=== PATIENT | male | born 1960 | race Caucasian/White ===

== ENCOUNTER → 2020-04-15 | Outpatient (CLI) | payer BC, OTHER ==
--- NOTE | 2020-04-15 09:03 | KCIC ---
MRI Lumbar Spine without contrast History: Low back pain, pain into the left lower extremity for one month Technique: Multiplanar, multi sequential noncontrast MR imaging was performed of the lumbar spine. Comparison: None Findings: Lumbar vertebral body stature is maintained. There is negligible posterior subluxation L5 relative to S1 and negligible grade 1 anterior spondylolisthesis at L3-4. There is moderate to severe degenerative disc disease greater on the right at L4-5 with associated degenerative endplate change. There is moderate disc disease greater posteriorly at L5-S1, mild degenerative disc disease at L3-4 eccentric to the right. Conus terminates at L1-2. There is negligible superior lumbar dextroscoliosis. There is anterior annular tear L3-4 also posteriorly at L5-S1. There is some nonspecific edema of the posterior subcutaneous fat of the lower back. There is no significant focal marrow edema. L1-L2: This level was not included on the axial images. Neural foramina and spinal canal are adequate. L2-L3: This level was not included on the axial images. There is negligible disc osteophyte complex. Spinal canal and neural foramina are overall adequate. L3-L4: There is minimal disc osteophyte complex and bulge. There is mild buckling of the ligamentum flavum and qyjk-pw-dokbdfih facet hypertrophic change. There is minimal fluid in the facet articulations bilaterally. There is moderate lateral recess stenosis bilaterally, [id number]-[id number] narrowing of the central canal. There is moderate bilateral neural foramina compromise by disc osteophyte complex and facets, contact of the undersurfaces of the exiting L3 nerve roots greater on the left, also contact of the proximal extraforaminal left L3 nerve root by disc osteophyte complex. L4-L5: There is minimal disc osteophyte complex, likely shallow partially calcified protrusion. There is mild indentation upon the ventral thecal sac greater in the right lateral recess. There is [id number] narrowing of the far right lateral recess with contact of the descending right L5 nerve root. There is mild bilateral facet degenerative change greater on the right. There is mild narrowing of the left neural foramen. There is severe narrowing of the right neural foramen with impingement of the exiting right L4 nerve root, narrowing by disc osteophyte complex and facet. Disc osteophyte complex is also near the proximal extraforaminal right L4 nerve root. L5-S1: There is negligible disc osteophyte complex. There is no impingement of the descending S1 nerve roots. Spinal canal is adequate. There is bilateral facet hypertrophic change. There is moderate neural foramina compromise bilaterally somewhat greater on the left. Impression: 1. There is esus-so-flxwkyvw narrowing of the far right lateral recess at L4-5 with contact of the descending right L5 nerve root. There is moderate narrowing of the far lateral recesses bilaterally at L3-4, mild to moderate narrowing of the central canal. 2. There is severe narrowing of the right L4-5 neural foramen with impingement of the exiting right L4 nerve root, moderate neural foramina compromise bilaterally at L3-4 and L4-5. 3. There is degenerative disc disease greatest at L4-5, to lesser degree at L5-S1 and minimally at L3-4. 4. There is mild abnormal alignment as stated, multilevel facet degenerative change. Electronically signed by: Foreign Willett MD (04/15/2020 9:00 AM) [facility] CENTERJanel
== END ==
LOC: KCIC MRI 07:55
PROVIDERS: ATTEND Family Medicine
DX: M47.816 Spondylosis without myelopathy or radiculopathy, lumbar region (principal); M43.16 Spondylolisthesis, lumbar region; M51.36 Other intervertebral disc degeneration, lumbar region; M48.061 Spinal stenosis, lumbar region without neurogenic claudication; M25.78 Osteophyte, vertebrae
CPT/HCPCS: 72148

== ENCOUNTER → 2020-04-21 | Outpatient (CLI) | payer BC, OTHER ==
[~2020-04-21] MED LIST: CALC200T3 PO; IBUP-1060 PO; IOHEXOL 180 MG/ML 10 ML VIAL. ONE; NAPR-514 PO; methylPREDNISolone ACETATE 40 MG/ML VIAL. ONE; methylPREDNISolone ACETATE 80 MG/ML VIAL. ONE
--- NOTE | 2020-04-21 09:14 | PDOC1 ---
INITIAL PAIN CONSULT DATE OF SERVICE: DOS: DATE: 04/21/20 TIME: 09:07 CHIEF COMPLAINT: Chief Complaint: Low back and left lower extremity pain HISTORY OF PRESENT ILLNESS: 59-year-old male presents with history of pain low back left lower extremity for several months now worse over the past 1 month without any specific injury or accident that he is aware of pain radiating from the low back into the left lowe r extremity most in the lateral thigh anterior thigh medial thigh medial lower leg in the groin on the left side patient reports this is worse with walking standing changing positions stooping bending repetitive motions stepping up or stepping down, patient works as a esthetician makeup artist and this is become difficult for him to work he is been off work now for several weeks because of the pain. Patient is tried tramadol as well as ibuprofen also Aleve all with only very minimal decrease in pain. Patient has some chiropractic treatments as well as exercise on his own but is only very temporary decreasing the pain but it does decrease it by about 10 to 20% patient reports her pain waking her from sleep least 3 times a night is been sleeping in recliner to try to decrease the pain side effects bowel bladder control does affect his ability to walk significantly and is favoring his left lower extremity but not use any assistive devices. Patient cries pain is sharp stabbing throbbing with numbness radiating pain tingling on the anterior thigh medial thigh as well as into the top of the foot on the left side at the junction of the foot and the ankle with some numbness as well and some throbbing sensation in the foot as well. Patient reports no significant symptoms on the right side. Patient rates his disability rating 0- 10 10 being the worst is a 10 with family home responsibilities recreation soc ial activity sexual behavior occupation 9 with self-care and 8 with life support activities. Patient have MRI scan lumbar spine showing L3-4 with moderate bilateral neuroforaminal compromise by disc ossified complex contact of the undersurface of the exiting L3 nerve roots greater on the left with contact of the proximal extraforaminal left L3 nerve root by disc osteophyte complex L4-5 shows mild bilateral facet degenerative change mild narrowing the left foramen and contact of the exiting right L4 nerve root by disc ossified complex. Patient reports no overt motor loss but significant fatigability with exercise activity with the left lower extremity. PAST MEDICAL HISTORY: PMH: Hearing loss, COPD, gastroesophageal reflux, arthritis PREVIOUS SURGERIES: Past Surgical Hx: Umbilical herniorrhaphy CURRENT MEDICATIONS: Current Meds: Ibuprofen, naproxen, Tums ALLERGIES; Allergies: Coded Allergies: No Known Drug Allergies (Unverified , 04/21/20) FAMILY HISTORY: Family Hx: Cancers SOCIAL HISTORY: Social Hx: Patient does not drink alcohol does not use any illegal illicit or recreational drugs patient does smoke cigarettes about 1 pack or less for the past 45 years is lives with his spouse lives locally in [facility] and works as a professional esthetician makeup artist REVIEW OF SYSTEMS: ROS: Positive for those items mentioned in history of present illness, all systems are reviewed, otherwise negative, is complete full and well-documented on patient's chart PHYSICAL EXAM: VS: Blood pressure is 141/91 pulse 101 respirations 16 temperature is 90.0 F height is 6 foot 2 inches weight is 264 pounds PE: PHYSICAL EXAMINATION: GENERAL: The patient is awake, alert, oriented, appropriate, very pleasant demeanor HEENT: Shows normocephalic, atraumatic. Full melo and mustache extraocular movements are intact and symmetrical. Oral cavity: Mucous membranes moist and pink. Dentition is intact. NECK: Shows anterior throat supple without palpable lymphadenopathy noted. Swallow reflex symmetrical. CHEST: Shows normal on inspection. Breath sounds are clear bilaterally, distant but no rales rhonchi or wheezes auscultated. HEART: Shows S1, S2 clear. No murmurs auscultated. ABDOMEN: Soft, nontender, nondistended, obese. No palpable organomegaly is noted. No rebound or guarding demonstrated. BACK: Shows spine grossly in the midline. Normal-appearing cervical lordotic curvature. There is slightly increased thoracic kyphosis, some minor flattening of the lumbar lordotic curvature. Lumbar paraspinous muscles show symmetrical on inspection, on palpation shows some moderate tenderness diffusely throughout the upper, middle and lower distribution of the paraspinous muscles bilaterally and also into the lower thoracic paraspinous musculature, firm and tender, but without specific trigger points, without radiation of pain. The patient has good rotational motion of the lumbar spine, both laterally as well as extension and flexion without significant difficulty. No tenderness over the spinous processes, sacrum or sacroiliac regions. EXTREMITIES: Lower extremities show deep tendon reflexes 2+ in the patellar and tendo calcaneus tendons. Motor exam is 5 on a scale of 5 with right dorsiflexion, extension, quadriceps and hamstring flexion and 4/5 on the left. Peripheral pulses are 1+ posterior tibial. No peripheral edema is noted bilaterally. Lower extremities are warm and dry to touch, equal in color and appearance. Straight leg raise noted to be negative on the right, left side is positive at 35 degrees decreased with knee flexion. Gaenslen's and Rowdy's maneuvers are negative bilaterally as well. The patient is able to stand, has difficulty trying to stand with all his weight on his left foot is a significantly painful. Patient is walking with a significant antalgic gait favoring the left lower extremity but without any assistive devices. SKIN: Shows warm and dry, good turgor. No edema. No sores, rashes or bruising throughout. IMPRESSION: Impression: 59-year-old male with several month history low back left lower extremity pain in a radicular fashion MRI scan and CT scans as noted COPD Arthritis Cigarette smoking Plan: Options were discussed with the patient including conservative medical management physical therapies and interventional techniques. Patient would like to pursue interventional techniques, we discussed a lumbar epidural steroid injection using description as well as anatomical models to describe the procedure. Risks were discussed including but not limited to: Bleeding, infection, possibility of epidural hematoma and subsequent neurological compromise, dural puncture, headaches, spinal cord and/or nerve damage, side effects of steroid medication, and poor results regarding pain control. Patient understands wished to proceed. Patient will return to the clinic in approximate 2 weeks for follow-up was counseled as to return appointment activity level and side effects to be aware of. Procedure is lumbar epidural steroid injection under local anesthetic using sterile prep and drape at the L3-4 level using C-arm fluoroscopic guidance in both AP and lateral views medications injected is 120 mg Depo-Medrol + 10 mL preservative-free normal saline and 2 mL contrast- condition at discharge is stable patient tolerated procedure well had no complications. LOKESH TALBERT MD Apr 21, 2020 09:14
== END ==
LOC: PNCL 08:00
PROVIDERS: ATTEND Anesthesiology
DX: M54.5 Low back pain (principal); M79.605 Pain in left leg; J44.9 Chronic obstructive pulmonary disease, unspecified; K21.9 Gastro-esophageal reflux disease without esophagitis; M19.90 Unspecified osteoarthritis, unspecified site; F17.210 Nicotine dependence, cigarettes, uncomplicated; Z79.899 Other long term (current) drug therapy
CPT/HCPCS: 62323; J1030; J1040; Q9965

== ENCOUNTER → 2020-05-08 | Outpatient (CLI) | payer BC, OTHER ==
--- NOTE | 2020-05-08 09:14 | PDOC ---
Progress Note - Pain Clinic Date of Service: DOS: DATE: 05/08/20 TIME: 09:12 Diagnosis: Dx: Lumbar radiculopathy with lumbar degenerative disc disease and lumbar spinal stenosis History or Present Illness: HPI: 59-year-old male returns follow-up status post lumbar epidural to injection x1. Patient reports about 50% improvement after a few days following the injection but the pain is definitely significantly improved in the low back and left lower extremity. Patient reports the tingling and stinging is much less intense in the left leg anterior thigh especially. Patient with pain in the low back rating the posterior hip lateral thigh anterior thigh anterior medial thigh medial groin into the medial knee on the left side. Patient reports is better with walking standing changing positions able to go back to work he was not doing any heavy lifting jobs has been on his feet most of his working days with good tolerance and good pain control. Patient reports the pain is sharp and aching and some tingling still in the left thigh patient reports is a 10 on scale 10 is worst over the past week 7 on average for its least is a 7 today. Patient reports no new motor or sensory deficits no new bowel or bladder incontinence or other complaints. Physical Exam: VS: Pressure is 144/91 pulse 83 respirations 18 temperature 98.0 F height is 6 foot 2 inches weight is 266 pounds PE: PHYSICAL EXAMINATION: GENERAL: The patient is awake, alert, oriented, appropriate, very pleasant demeanor HEENT: Shows normocephalic, atraumatic. Extraocular movements are intact and symmetrical. Oral cavity: Mucous membranes moist and pink. NECK: Shows anterior throat supple without palpable lymphadenopathy noted. Swallow reflex symmetrical. CHEST: Shows normal on inspection. Breath sounds are clear bilaterally. HEART: Shows S1, S2 clear. No murmurs auscultated. ABDOMEN: Soft, nontender, nondistended. No palpable organomegaly is noted. No rebound or guarding demonstrated. BACK: Shows spine grossly in the midline. Normal-appearing cervical lordotic curvature. There is slightly increased thoracic kyphosis, some minor flattening of the lumbar lordotic curvature. Lumbar paraspinous muscles show symmetrical on inspection, on palpation shows some moderate tenderness diffusely throughout the upper, middle and lower distribution of the paraspinous muscles without specific trigger points, without radiation of pain. The patient has good rotational motion of the lumbar spine, both laterally as well as extension and flexion without significant difficulty. No tenderness over the spinous processes, sacrum or sacroiliac regions. EXTREMITIES: Lower extremities show deep tendon reflexes 2+ in the patellar and tendo calcaneus tendons. Motor exam is 5 on a scale of 5 with right dorsiflexion, extension, quadriceps and hamstring flexion and 4/5 on the left. Peripheral pulses are 1+ posterior tibial. No peripheral edema is noted bilaterally. Lower extremities are warm and dry to touch, equal in color and appearance. SKIN: Shows warm and dry, good turgor. No edema. No sores, rashes or bruising throughout. Procedure: Procedure: Options were discussed with the patient. Patient's old chart was reviewed his current medication regimen updated current review of systems updated today as well. We will proceed with a second in the series lumbar epidural steroid injection today with fluoroscopic guidance. Risks were discussed including but not limited to: Bleeding, infection, possibility of epidural hematoma and subsequent neurological compromise, dural puncture, headaches, spinal cord and/or nerve damage, side effects of steroid medication, and poor results regarding pain control. Patient understands wished to proceed. Patient will return to clinic in possibly 2 weeks for follow-up was counseled as to return appointment activity level and side effects to be aware of. Medication Injected: Med Injected: Procedure is lumbar epidural steroid injection under local anesthetic using sterile prep and drape at the L3-4 level using C-arm fluoroscopic guidance in both AP and lateral views medications injected is 120 mg Depo-Medrol + 10 mL preservative-free normal saline and 2 mL contrast- condition at discharge is stable patient tolerated procedure well had no complications. Condition at Discharge: Condition at Discharge: Condition at discharge is stable, patient tolerated procedure well and had no complications. LOKESH TALBERT MD May 08, 2020 09:14
== END | disposition home or self-care (01) ==
LOC: PNCL 08:07
PROVIDERS: ATTEND Anesthesiology
DX: M51.16 Intervertebral disc disorders with radiculopathy, lumbar region (principal); M48.061 Spinal stenosis, lumbar region without neurogenic claudication; Z79.899 Other long term (current) drug therapy
CPT/HCPCS: 62323; J1030; J1040; Q9965

== ENCOUNTER → 2020-06-03 | Outpatient (CLI) | payer BC, OTHER ==
[~2020-06-03] MED LIST changes: +TRAM50TA PO
--- NOTE | 2020-06-03 09:36 | PDOC ---
Progress Note - Pain Clinic Date of Service: DOS: DATE: 06/03/20 TIME: 09:33 Diagnosis: Dx: Lumbar radiculopathy with lumbar degenerative disc disease and lumbar spinal stenosis History or Present Illness: HPI: 59-year-old male returns follow-up status post lumbar epidural straight injection x2. Patient ports that 70% improvement overall much more comfortable increase in activity during work activities household activities sleeping with greater ease and comfort does not awaken him sleep at this time. Patient reports pain in the low back left lower extremity lateral thigh anterior thigh medial thigh medial lower leg and knee patient was aching stabbing on and off in intensity patient ports his pain is a 9 on scale 10 past week 5 on 6 on average and 3 at its least and is a 5 today. She reports no new motor or sensory deficits no bowel or bladder incontinence or other complaints. Physical Exam: VS: Pressure is 147/79 pulse 88 respirations 16 temperature 90.2 F height is 6 feet 2 inches weight is 268 pounds PE: PHYSICAL EXAMINATION: GENERAL: The patient is awake, alert, oriented, appropriate, very pleasant demeanor HEENT: Shows normocephalic, atraumatic. Extraocular movements are intact and symmetrical. NECK: Shows anterior throat supple without palpable lymphadenopathy noted. Swallow reflex symmetrical. CHEST: Shows normal on inspection. Breath sounds are clear bilaterally. HEART: Shows S1, S2 clear. No murmurs auscultated. ABDOMEN: Soft, nontender, nondistended, obese. No palpable organomegaly is noted. No rebound or guarding demonstrated. BACK: Shows spine grossly in the midline. Normal-appearing cervical lordotic curvature. There is slightly increased thoracic kyphosis, some minor flattening of the lumbar lordotic curvature. Lumbar paraspinous muscles show symmetrical on inspection, on palpation shows some moderate tenderness diffusely throughout the upper, middle and lower distribution of the paraspinous muscles, but without specific trigger points, without radiation of pain. The patient has good rotational motion of the lumbar spine, both laterally as well as extension and flexion without significant difficulty. No tenderness over the spinous processes, sacrum or sacroiliac regions. EXTREMITIES: Lower extremities show deep tendon reflexes 2+ in the patellar and tendo calcaneus tendons. Motor exam is 5 on a scale of 5 with right iván siflexion, extension, quadriceps and hamstring flexion and 4/5 on the left. Peripheral pulses are 1+ posterior tibial. No peripheral edema is noted bilaterally. Lower extremities are warm and dry to touch, equal in color and appearance. SKIN: Shows warm and dry, good turgor. No edema. No sores, rashes or bruising throughout. Procedure: Procedure: Options were discussed with the patient. Patient's old chart was reviewed his current medication regimen updated current review of systems updated today as well. We will proceed with a third in the series lumbar epidural steroid injection today with fluoroscopic guidance. Risks were discussed including but not limited to: Bleeding, infection, possibility of epidural hematoma and subsequent neurological compromise, dural puncture, headaches, spinal cord and/or nerve damage, side effects of steroid medication, and poor results regarding pain control. Patient understands wished to proceed. Patient return to clinic in possibly 2 weeks for follow-up , was counseled as to return appointment activity level and side effects to be aware of. Medication Injected: Med Injected: Procedure is lumbar epidural steroid injection under local anesthetic using s terile prep and drape at the L3-4 level using C-arm fluoroscopic guidance in both AP and lateral views medications injected is 120 mg Depo-Medrol + 10 mL preservative-free normal saline and 2 mL contrast- condition at discharge is stable patient tolerated procedure well had no complications. Condition at Discharge: Condition at Discharge: Condition at discharge is stable, patient tolerated procedure well and had no complications. LOKESH TALBERT MD Jun 03, 2020 09:36
== END | disposition home or self-care (01) ==
LOC: PNCL 08:24
PROVIDERS: ATTEND Anesthesiology
DX: M51.16 Intervertebral disc disorders with radiculopathy, lumbar region (principal); M48.061 Spinal stenosis, lumbar region without neurogenic claudication; Z79.899 Other long term (current) drug therapy
CPT/HCPCS: 62323; J1030; J1040; Q9965